=== PATIENT | male | born 1985 | race Caucasian/White ===

== ENCOUNTER 2019-05-09 19:48 | Emergency (ER) | payer OTHER ==
[~2019-05-09] VITALS: Ht 172.7 cm; Wt 72.0 kg
[2019-05-09] MEDS ORDERED: GABA-529 PO (20:10)
[2019-05-09] MEDS ORDERED: IBUP-2071 PO (20:10)
[2019-05-09] MEDS ORDERED: NAPR-1142 PO (20:10)
[2019-05-09] MEDS ORDERED: LIDOCAINE 5% TRANSDERMAL PATCH TD ONE (21:45)
[2019-05-09 22:36] VITALS: BP 122/79
== END 2019-05-09 22:37 | disposition home or self-care (01) ==
LOC: EMS 19:48
DX: M54.5 Low back pain (principal); Z79.899 Other long term (current) drug therapy
CPT/HCPCS: 72100

== ENCOUNTER 2019-11-01 10:38 | Emergency (ER) | payer OTHER ==
[~2019-11-01] VITALS: Ht 167.6 cm; Wt 73.0 kg
[~2019-11-01 10:38] MED LIST: GABA-529 PO; IBUP-2071 PO; NAPR-1142 PO
[2019-11-01] MEDS ORDERED: IBUPROFEN 800 MG TABLET PO ONE (11:45)
[2019-11-01 12:29] VITALS: BP 114/62
== END 2019-11-01 13:03 | disposition home or self-care (01) ==
LOC: EMS 10:40
DX: S43.112A Subluxation of left acromioclavicular joint, initial encounter (principal); W19.XXXA Unspecified fall, initial encounter; Y93.89 Activity, other specified; Y92.89 Other specified places as the place of occurrence of the external cause; Y99.8 Other external cause status

== ENCOUNTER 2021-04-17 12:14 | Emergency (ER) | payer OTHER ==
[~2021-04-17] VITALS: Ht 170.2 cm; Wt 72.7 kg
[2021-04-17 13:25] LABS: BASOPHILS % (AUTO) 0.4 % (0.0-2.0); EOSINOPHILS % (AUTO) 2.4 % (1.0-6.0); HEMATOCRIT 40.9 % (41-53); HEMOGLOBIN 13.9 g/dL (13.5-17.5); LYMPHOCYTES % (AUTO) 36.2 % (22.0-44.0); MEAN CORPUSCULAR HEMOGLOBIN 26.9 pg (26.0-34.0); MEAN CORPUSCULAR HGB CONC 34.1 G/dL (31.0-37.0); MEAN CORPUSCULAR VOLUME 79 fL (80-100); MONOCYTES # (AUTO) 0.2 K/uL (0.1-1.0); MONOCYTES % (AUTO) 8.4 % (2.0-9.0); NEUTROPHILS # (AUTO) 1.5 K/uL (1.8-7.7); NEUTROPHILS % (AUTO) 52.6 % (40.0-70.0); PLATELET COUNT (AUTO) 153 K/uL (150-450); RED BLOOD CELL COUNT(AUTO) 5.19 MIL/uL (4.50-5.90); RED CELL DISTRIBUTION WIDTH 13.1 % (11.5-14.5)
[2021-04-17 13:37] LABS: ANION GAP 4 mmol/L (8-16); CALCIUM, TOTAL 9.5 mg/dL (8.8-10.5); CARBON DIOXIDE 32 mmol/L (22-29); CHLORIDE 102 mmol/L (98-107); CREATININE 1.08 mg/dL (0.60-1.30); GLOMERULAR FILTR. RATE CALC > 60 mL/min (>60); GLUCOSE,RANDOM 112 mg/dL (70-110); POTASSIUM 4.5 mmol/L (3.5-5.1); SODIUM SERUM 138 mmol/L (136-145); UREA NITROGEN, BLOOD 22 mg/dL (7-18)
[2021-04-17 13:41] LABS: ALANINE AMINOTRANSFERASE 21 U/L (12-78); ALBUMIN 4.3 g/dL (3.4-5.0); ALKALINE PHOSPHATASE 77 U/L (46-116); ASPARTATE AMINOTRANSFERASE 25 U/L (15-37); BILIRUBIN,TOTAL 0.5 mg/dL (0.1-1.0); TOTAL PROTEIN, SERUM 8.2 g/dL (6.4-8.2)
[2021-04-17] MEDS ORDERED: NAPR-1181 PO (14:47)
[2021-04-17 14:54] VITALS: BP 105/63
== END 2021-04-17 14:54 | disposition home or self-care (01) ==
LOC: EMS 12:15
DX: S20.212A Contusion of left front wall of thorax, initial encounter (principal); Z79.899 Other long term (current) drug therapy; X58.XXXA Exposure to other specified factors, initial encounter; Y93.89 Activity, other specified; Y92.89 Other specified places as the place of occurrence of the external cause; Y99.8 Other external cause status
CPT/HCPCS: 71045; 80053; 84484; 85025; 93005; 99285; 36415-L1; 36415-TC